=== PATIENT | female | born 1935 | race Caucasian/White ===

== ENCOUNTER 2024-12-24 11:10 | Emergency (ER) | payer MEDICARE, MEDICAID ==
[~2024-12-24] VITALS: Ht 157.5 cm; Wt 59.1 kg
[2024-12-24 11:39] VITALS: TEMP 97.6
[2024-12-24 13:41] VITALS: BP 148/93; PULSE 82; RESP 18; O2SAT 97
== END 2024-12-24 15:30 | disposition short-term general hospital (02) ==
LOC: EMS 12:59
DX: F32.A Depression, unspecified (principal); F69 Unspecified disorder of adult personality and behavior; F41.9 Anxiety disorder, unspecified; M19.90 Unspecified osteoarthritis, unspecified site; J44.9 Chronic obstructive pulmonary disease, unspecified; F03.93 Unspecified dementia, unspecified severity, with mood disturbance; K21.9 Gastro-esophageal reflux disease without esophagitis; E78.00 Pure hypercholesterolemia, unspecified; F03.911 Unspecified dementia, unspecified severity, with agitation; E03.9 Hypothyroidism, unspecified; I10 Essential (primary) hypertension; Z91.148 Patient's other noncompliance with medication regimen for other reason
CPT/HCPCS: 99285; Z7502